=== PATIENT | female | born 1990 | race Caucasian/White ===

== ENCOUNTER 2021-02-22 03:13 | Emergency (ER) | payer OTHER ==
[2021-02-22] MEDS ORDERED: Acetaminophen 500 MG TAB ONE ×2 (04:21→09:41)
[2021-02-22] MEDS ORDERED: Boostrix 0.5 ML (Tdap) VIAL ONE (04:21)
[2021-02-22] MEDS ORDERED: Cyclobenzaprine 10 MG TAB ONE (05:12)
== END 2021-02-22 05:55 | disposition home or self-care (01) ==
LOC: ERS 03:13
DX: R55 Syncope and collapse (principal); S01.112A Laceration without foreign body of left eyelid and periocular area, initial encounter; S16.1XXA Strain of muscle, fascia and tendon at neck level, initial encounter; W22.8XXA Striking against or struck by other objects, initial encounter
CPT/HCPCS: 12011; 70450; 70486; 71045; 72125; 90471; 90715; 93005